=== PATIENT | male | born 1955 | race Caucasian/White ===

== ENCOUNTER 2024-11-14 14:14 | Outpatient (CLI) | payer MEDICARE, SELFPAY ==
--- NOTE | ~2024-11-14 | MR_ITS ---
Procedure: MR lumbar spine wo con Ordering provider: Luther Manjarrez, History: . Low back pain with right sided sciatica . Comparison: None. Technique: MRI of lumbar spine without contrast. FINDINGS: SPINAL CORD: Normal. Cord ends at the level of L1. VERTEBRAL BODIES: Normal height and alignment. No compression fracture. Normal marrow signal. DISK SPACES: Normal. STENOSIS: L1-L2: Mild diffuse disc bulge. Thickening of ligamenta flava. Bilateral facet joint disease. L2-L3: Mild spinal canal stenosis. Diffuse disc bulge. Thickening of the ligamenta flava with bilater al facet joint disease. L3-L4: Mild spinal canal stenosis. Diffuse disc bulge. Thickening of the ligamenta flava. Facet joint disease bilaterally. L4-L5: Mild to moderate spinal canal stenosis. Diffuse disc bulge. Thickening of the ligamenta flava. Bilateral facet joint disease. Narrowing of the foramina with right nerve root compression. L5-S1: Mild diffuse disc bulge. Osteophyte is seen laterally on the right with highly suggestive root compression in that area. PARASPINOUS SOFT TISSUES: Normal. IMPRESSION: No compression fracture. Multilevel spinal canal stenosis, diffuse disc bulges, facet joint disease and nerve root compression . Reviewed, dictated and finalized at location A. IMPRESSION: No compression fracture. Multilevel spinal canal stenosis, diffuse disc bulges, facet joint disease and nerve root compression.
== END 2024-11-14 14:15 | disposition home or self-care (01) ==
LOC: GOSHIMG 14:15
PROVIDERS: PCP Internal Medicine; Visit Provider Internal Medicine
DX: M54.31 Sciatica, right side (principal); M48.061 Spinal stenosis, lumbar region without neurogenic claudication
CPT/HCPCS: 72148